=== PATIENT | male | born 1985 | race African-American/Black ===

== ENCOUNTER 2017-01-22 02:53 | Emergency (ER) | payer OTHER ==
[~2017-01-22] VITALS: Ht 175.3 cm; Wt 98.0 kg
[~2017-01-22 02:53] MED LIST: BUSP5TAB PO; ZOLO25TA PO
[2017-01-22 02:58] VITALS: BP 147/91; PULSE 78; RESP 12; TEMP 97.7; O2SAT 97
[2017-01-22] MEDS ORDERED: SODIUM CHLOR 0.9% 1000 ML INJ 1,000 ML IV SCH (03:09)
[2017-01-22 03:10] VITALS: BP 126/84; PULSE 72; RESP 14; O2SAT 97
[2017-01-22 03:11] VITALS: O2SAT 97
[2017-01-22] MEDS ORDERED: SODIUM CHLORIDE 0.9% FLUSH 10 ML FLUSH IVF PRN (03:15)
--- NOTE | 2017-01-22 03:19 | PD ---
HPI Chief Complaint: GI Complaint Time Seen by Provider: 03:09 Travel History International Travel<30 days: No Contact w/Intl Traveler<30days: No Traveled to known affect area: No History of Present Illness HPI 31-year-old male presents with multiple episodes of vomiting over the past 2 hours. He states one episode was a dark brown. He states that he had about 10 alcoholic drinks tonight. He states that is not usual for him. He presents with his . He denies other specific complaints at this time other than cramping intermittently to his upper abdomen. He denies specific modifying factors. He cannot quantify the amount and states that he's been vomiting pretty much nonstop PFSH Past Medical History Anxiety: Yes Psychiatric: Yes (PTSD) Tetanus Vaccination: > 5 Years Influenza Vaccination: Yes Social History Alcohol Use: Yes Tobacco Use: Yes (4 cig/day) Substance Use: No Allergies-Medications (Allergen,Severity, Reaction): Coded Allergies: Azithromycin (Verified Allergy, Unknown, Anaphylaxis, 01/22/17) Reported Meds & Prescriptions Reported Meds & Active Scripts Active Reported Buspirone (Buspirone HCl) 5 Mg Tab 5 Mg PO BID Zoloft (Sertraline HCl) 25 Mg Tab 25 Mg PO DAILY Review of Systems Except as stated in HPI: all other systems reviewed are Neg Physical Exam Narrative GENERAL: Well-nourished, well-developed patient. SKIN: Warm and dry. HEAD: Normocephalic and atraumatic. EYES: No injection or drainage. ENT: No nasal drainage noted. NECK: Supple, trachea midline. CARDIOVASCULAR: Regular rate and rhythm RESPIRATORY: Breath sounds equal bilaterally. No accessory muscle use. GASTROINTESTINAL: Abdomen soft, non-tender, nondistended. EXTREMITIES: No edema. RECTAL EXAM: Performed with log roller and after permission. No external hemorrhoid or fissure, stool is brown, non-bloody. NEUROLOGICAL: Awake and alert. Motor and sensory grossly within normal limits. Normal speech. Data Data Last Documented VS Vital Signs Date Time Temp Pulse Resp B/P Pulse Ox O2 Delivery O2 Flow Rate FiO2 01/22/17 03:11 97 Room Air 01/22/17 03:10 72 14 126/84 01/22/17 02:58 97.7 Orders Complete Blood Count With Diff (01/22/17 03:09) Comprehensive Metabolic Panel (01/22/17 03:09) Prothrombin Time / Inr (Pt) (01/22/17 03:09) Act Partial Throm Time (Ptt) (01/22/17 03:09) Type And Screen (01/22/17 03:09) Ecg Monitoring (01/22/17 03:09) Iv Access Insert/Monitor (01/22/17 03:09) Oximetry (01/22/17 03:09) Sodium Chlor 0.9% 1000 Ml Inj (Ns 1000 M (01/22/17 03:09) Sodium Chloride 0.9% Flush (Ns Flush) (01/22/17 03:15) Pantoprazole Inj (Protonix Inj) (01/22/17 03:30) Sodium Chlor 0.9% 1000 Ml Inj (Ns 1000 M (01/22/17 03:30) Ondansetron Inj (Zofran Inj) (01/22/17 03:30) Alcohol (Ethanol) (01/22/17 03:09) Labs Laboratory Tests Test 01/22/17 01/22/17 02:15 03:15 White Blood Count 6.9 TH/MM3 Red Blood Count 5.52 MIL/MM3 Hemoglobin 15.1 GM/DL Hematocrit 44.9 % Mean Corpuscular Volume 81.4 FL Mean Corpuscular Hemoglobin 27.4 PG Mean Corpuscular Hemoglobin 33.7 % Concent Red Cell Distribution Width 14.5 % Platelet Count 196 TH/MM3 Mean Platelet Volume 10.4 FL Neutrophils (%) (Auto) 43.9 % Lymphocytes (%) (Auto) 40.7 % Monocytes (%) (Auto) 9.8 % Eosinophils (%) (Auto) 4.5 % Basophils (%) (Auto) 1.1 % Neutrophils # (Auto) 3.0 TH/MM3 Lymphocytes # (Auto) 2.8 TH/MM3 Monocytes # (Auto) 0.7 TH/MM3 Eosinophils # (Auto) 0.3 TH/MM3 Basophils # (Auto) 0.1 TH/MM3 CBC Comment DIFF FINAL Differential Comment Prothrombin Time 10.9 SEC Prothromb Time International 1.0 RATIO Ratio Activated Partial 25.9 SEC Thromboplast Time Blood Type B POSITIVE Antibody Screen NEGATIVE Blood Bank Comment Sodium Level 141 MEQ/L Potassium Level 4.0 MEQ/L Chloride Level 106 MEQ/L Carbon Dioxide Level 25.4 MEQ/L Anion Gap 10 MEQ/L Blood Urea Nitrogen 12 MG/DL Creatinine 1.07 MG/DL Estimat Glomerular Filtration 96 ML/MIN Rate Random Glucose 107 MG/DL Calcium Level 8.2 MG/DL Total Bilirubin 0.3 MG/DL Aspartate Amino Transf 36 U/L (AST/SGOT) Alanine Aminotransferase 54 U/L (ALT/SGPT) Alkaline Phosphatase 70 U/L Total Protein 8.2 GM/DL Albumin 3.9 GM/DL Ethyl Alcohol Level 119 MG/DL [facility] Medical Decision Making Medical Screen Exam Complete: Yes Emergency Medical Condition: Yes Medical Record Reviewed: Yes (past history confirmed) Interpretation(s) CBC & BMP Diagram 01/22/17 02:15 01/22/17 03:15 Differential Diagnosis Anemia, gastroenteritis, gastritis.... Narrative Course Will check blood work and dose with IV fluids and Zofran and Protonix and reevaluate no further emesis here, Patient denies any new complaints and states that they are feeling better. Patient happy with care, all questions answered. Patient knows that follow up is incumbent on them and to return to the emergency room immediately if new or worsening symptoms develop. Patient given strict return precautions, vitals reviewed and are normal, agrees to further workup as an outpatient. is here and will watch over patient Diagnosis Primary Impression: Vomiting Qualified Code: R11.10 - Vomiting, intractability of vomiting not specified, presence of nausea not specified, unspecified vomiting type Additional Impression: Alcohol abuse Patient Instructions: General Instructions Additional Instructions: return as needed, tylenol as needed, follow with primary tomorrow, zofran as needed Med/Other Pt SpecificInfo: Prescription(s) given Scripts Ondansetron Odt (Zofran Odt)4 Mg Tab4 Mg SL Q6HR PRN (Nausea/Vomiting) #10 TAB Prov:Narda Preston MD 01/22/17 Disposition: 01 DISCHARGE HOME Condition: Stable Narda Preston MD Jan 22, 2017 03:19
[2017-01-22] MEDS ORDERED: SODIUM CHLOR 0.9% 1000 ML INJ 1,000 ML IV ONE (03:30)
[2017-01-22] MEDS ORDERED: ONDANSETRON HCL 4 MG/2 ML VIAL IV PUSH ONE (03:30)
[2017-01-22] MEDS ORDERED: PANTOPRAZOLE SODIUM 40 MG VIAL IV PUSH ONE (03:30)
[2017-01-22 03:33] LABS: BASOPHIL # 0.1 TH/MM3 (0-0.2); BASOPHIL % 1.1 % (0.0-2.0); EOSINOPHIL # 0.3 TH/MM3 (0-0.4); EOSINOPHIL % 4.5 % (0.0-4.0); HEMATOCRIT 44.9 % (39.0-51.0); HEMO FLAGS DIFF FINAL; LYMPH % 40.7 % (9.0-44.0); LYMPHOCYTE # 2.8 TH/MM3 (1.0-4.8); MEAN CELL VOLUME 81.4 FL (80.0-100.0); MEAN CORPUSCULAR HEMOGLOBIN 27.4 PG (27.0-34.0); MEAN CORPUSCULAR HGB CONC 33.7 % (32.0-36.0); MONO % 9.8 % (0.0-8.0); NEUT % 43.9 % (16.0-70.0); PLATELET COUNT 196 TH/MM3 (150-450); RED BLOOD COUNT 5.52 MIL/MM3 (4.50-5.90); RED CELL DISTRIBUTION WIDTH 14.5 % (11.6-17.2); WHITE BLOOD COUNT 6.9 TH/MM3 (4.0-11.0)
[2017-01-22 03:43] LABS: APTT (PATIENT) 25.9 SEC (24.3-30.1); PROTHROMBIN TIME - PATIENT 10.9 SEC (9.8-11.6)
[2017-01-22 03:54] LABS: ALKALINE PHOSPHATASE 70 U/L (45-117); TOTAL BILIRUBIN ADULT 0.3 MG/DL (0.2-1.0)
[2017-01-22 04:09] LABS: ALT (GPT) 54 U/L (12-78); ANION GAP 10 MEQ/L (5-15); AST (GOT) 36 U/L (15-37); BICARBONATE 25.4 MEQ/L (21.0-32.0); BLOOD UREA NITROGEN 12 MG/DL (7-18); CHLORIDE 106 MEQ/L (98-107); GLOMERULAR FILTRATION RATE 96 ML/MIN (>89); SODIUM (NA) 141 MEQ/L (136-145)
[2017-01-22] MEDS ORDERED: ZOFR4TAB3 SL (04:21)
== END 2017-01-22 04:53 | disposition home or self-care (01) ==
LOC: NEPC 02:53
DX: R11.10 Vomiting, unspecified (principal); F10.10 Alcohol abuse, uncomplicated; R10.10 Upper abdominal pain, unspecified; Z72.0 Tobacco use; Z79.899 Other long term (current) drug therapy; Z86.59 Personal history of other mental and behavioral disorders
CPT/HCPCS: 80053; 80307; 85025; 85610; 85730; 86850; 86900; 86901; 96361; 96374; 96375; 99284; C9113; J2405; J7030